=== PATIENT | female | born 1960 | race African-American/Black ===

== ENCOUNTER 2017-04-26 23:32 | Inpatient (IN) | payer MEDICAID, OTHER ==
[~2017-04-26] VITALS: Ht 157.5 cm; Wt 68.5 kg
[~2017-04-26 23:32] MED LIST: METF500T4 PO; OMEP40CA34 PO
[2017-04-26] MEDS ORDERED: SODIUM CHLORIDE 0.9% 1,000 ML IV ONE (23:58)
[2017-04-26] MEDS ORDERED: KETOROLAC 30MG/ML VIAL IV STA (23:58)
[2017-04-27 00:26] LABS: BASOPHILS % 0.6 % (0.0-2.0); EOSINOPHILS % 1.8 % (0.0-5.0); HEMATOCRIT. 39.7 % (36.0-48.0); HEMOGLOBIN. 13.5 g/dL (12.0-16.0); LYMPHOCYTES % 25.4 % (20.0-50.0); MEAN CORPUSCULAR HEMOGLOBIN 28.7 pg (28.0-32.0); MEAN CORPUSCULAR VOLUME 84.6 fL (81.0-99.0); MEAN PLATELET VOLUME 8.5 fl (7.4-10.4); MONOCYTES % 7.2 % (2.0-8.0); PLATELET 364 x1000/uL (130-400); RED CELL DISTRIBUTION WIDTH 15.1 % (11.6-14.6)
[2017-04-27 00:31] LABS: CHLORIDE 108 mEq/L (98-107)
[2017-04-27 00:41] LABS: CARBON DIOXIDE 24 mEq/L (21-32); ETHANOL BLOOD 228 mg/dL
[2017-04-27] MEDS ORDERED: PROPOFOL 200MG/20ML VIAL IV ONE (01:15)
[2017-04-27] MEDS ORDERED: SODIUM CHLORIDE 0.9% 1,000 ML IV ONE (02:15)
[2017-04-27] MEDS ORDERED: SODIUM CHLORIDE 0.9% 1,000 ML IV SCH (02:38)
[2017-04-27] MEDS ORDERED: KCL 20MEQ/100ML PREMIX 100 ML IV ONE (02:45)
[2017-04-27] MEDS ORDERED: MORPHINE SULFATE 4 MG/ML CPJ (NOT FOR IM USE) IV ONE (04:30)
[2017-04-27 08:00] VITALS: BP 108/58
[2017-04-27 08:21] VITALS: BP 100/58
[2017-04-27] MEDS ORDERED: ATEN50TA PO (08:47)
[2017-04-27] MEDS ORDERED: ALPR1TAB2 PO (08:47)
[2017-04-27] MEDS ORDERED: LOSA100T14 PO (08:47)
[2017-04-27] MEDS ORDERED: ASPI-1159 PO (08:47)
[2017-04-27] MEDS: MORPHINE SULFATE 4 MG/ML CPJ (NOT FOR IM USE) IV PRN ×4 (10:52→23:24)
[2017-04-27] MEDS ORDERED: DEXTROSE 50% WATER 50ML SYRINGE IV PRN (11:45)
[2017-04-27 12:00] VITALS: BP 106/67
[2017-04-27] MEDS: BLOOD SUGAR DIAGNOSTIC STRIP TEST SCH ×3 (12:20→21:00)
[2017-04-27] MEDS: INSULIN LISPRO 100 UNITS/ML SUBCUT SCH ×3 (13:03→21:00)
[2017-04-27 16:00] VITALS: BP 153/85
[2017-04-27 20:00] VITALS: BP 145/75
[2017-04-27 22:48] LABS: CLARITY URINE CLEAR (CLEAR); COLOR URINE YELLOW (YELLOW); GLUCOSE URINE NEGATIVE (NEGATIVE); KETONES URINE NEGATIVE (NEGATIVE); LEUKOCYTE ESTERASE URINE NEGATIVE (NEGATIVE); NITRITE URINE NEGATIVE (NEGATIVE); OCCULT BLOOD URINE NEGATIVE (NEGATIVE); PH URINE 6.5 (4.5-8.0); PROTEIN URINE NEGATIVE (NEGATIVE); SPECIFIC GRAVITY URINE 1.014 (1.005-1.030)
[2017-04-27 23:00] LABS: *AMPHETAMINES SCREEN URINE NEGATIVE (NEGATIVE); *BARBITURATES SCREEN URINE NEGATIVE (NEGATIVE); *BENZODIAZEPINES SCREEN URINE PRESUMTIVE POSITIVE (NEGATIVE); *COCAINE SCREEN URINE NEGATIVE (NEGATIVE); CANNABINOID URINE SCREEN NEGATIVE (NEGATIVE); METHADONE URINE SCREEN NEGATIVE (NEGATIVE); OPIATES URINE SCREEN PRESUMTIVE POSITIVE (NEGATIVE); PHENCYCLIDINE URINE SCREEN NEGATIVE (NEGATIVE)
[2017-04-28] VITALS: BP 134/86
[2017-04-28 04:00] VITALS: BP 139/83
[2017-04-28] MEDS: MORPHINE SULFATE 4 MG/ML CPJ (NOT FOR IM USE) IV PRN ×5 (04:08→21:01)
[2017-04-28] MEDS: BLOOD SUGAR DIAGNOSTIC STRIP TEST SCH ×4 (06:42→21:05)
[2017-04-28] MEDS: INSULIN LISPRO 100 UNITS/ML SUBCUT SCH ×4 (06:42→21:00)
[2017-04-28 07:37] VITALS: BP 128/67
[2017-04-28] MEDS: ENOXAPARIN 40MG/0.4ML SYR SUBCUT SCH (08:14)
[2017-04-28 12:09] VITALS: BP 136/74
[2017-04-28 15:51] VITALS: BP 132/74
[2017-04-28 19:14] LABS: BASOPHILS % 1.1 % (0.0-2.0); EOSINOPHILS % 1.5 % (0.0-5.0); HEMATOCRIT. 36.5 % (36.0-48.0); HEMOGLOBIN. 12.4 g/dL (12.0-16.0); LYMPHOCYTES % 30.2 % (20.0-50.0); MEAN CORPUSCULAR HEMOGLOBIN 28.1 pg (28.0-32.0); MEAN CORPUSCULAR VOLUME 82.7 fL (81.0-99.0); MEAN PLATELET VOLUME 8.7 fl (7.4-10.4); MONOCYTES % 7.7 % (2.0-8.0); NEUTROPHILS % 59.5 % (40.0-76.0); PLATELET 330 x1000/uL (130-400); RED BLOOD CELL COUNT 4.41 mill/uL (4.2-5.4); RED CELL DISTRIBUTION WIDTH 14.8 % (11.6-14.6)
[2017-04-28 19:20] LABS: PROTHROMBIN TIME 10.3 sec (9.4-11.6)
[2017-04-28 19:32] LABS: CARBON DIOXIDE 26 mEq/L (21-32); CHLORIDE 108 mEq/L (98-107)
[2017-04-28 20:00] VITALS: BP 138/81
[2017-04-29] VITALS: BP 147/77
[2017-04-29] MEDS: MORPHINE SULFATE 4 MG/ML CPJ (NOT FOR IM USE) IV PRN ×4 (01:03→15:37)
[2017-04-29 04:00] VITALS: BP 147/77
[2017-04-29] MEDS: BLOOD SUGAR DIAGNOSTIC STRIP TEST SCH ×2 (06:06→12:20)
[2017-04-29] MEDS: INSULIN LISPRO 100 UNITS/ML SUBCUT SCH ×2 (07:50→12:50)
[2017-04-29 08:00] VITALS: BP 154/81
[2017-04-29] MEDS: ENOXAPARIN 40MG/0.4ML SYR SUBCUT SCH (11:11)
[2017-04-29 12:00] VITALS: BP 145/81
[2017-04-29 16:00] VITALS: BP 149/86
== END 2017-04-29 18:10 | disposition short-term general hospital (02) | DRG 349 ==
LOC: ER 23:41 → 6EST 04-27 02:42 → ENRESERV 04-27 04:56
PROVIDERS: ADMIT Family Medicine; ATTEND Family Medicine
DX: T84.020A Dislocation of internal right hip prosthesis, initial encounter (principal); E11.65 Type 2 diabetes mellitus with hyperglycemia; I10 Essential (primary) hypertension; E03.9 Hypothyroidism, unspecified; E78.5 Hyperlipidemia, unspecified; E87.6 Hypokalemia; Y83.8 Other surgical procedures as the cause of abnormal reaction of the patient, or of later complication, without mention of misadventure at the time of the procedure; F10.129 Alcohol abuse with intoxication, unspecified; F17.200 Nicotine dependence, unspecified, uncomplicated; M16.12 Unilateral primary osteoarthritis, left hip; W01.0XXA Fall on same level from slipping, tripping and stumbling without subsequent striking against object, initial encounter; Y79.2 Prosthetic and other implants, materials and accessory orthopedic devices associated with adverse incidents; Z82.49 Family history of ischemic heart disease and other diseases of the circulatory system; Z79.82 Long term (current) use of aspirin; Z79.899 Other long term (current) drug therapy; Z88.8 Allergy status to other drugs, medicaments and biological substances; Y92.89 Other specified places as the place of occurrence of the external cause
CPT/HCPCS: 27250; 36415; 72170; 73502; 80053; 80061; 80305; 81003; 82962; 83520; 85025; 85610; 96361; 96365; 96366; 96375; 99152; 99285; G0482; J1650; J1815; J1885; J2270; J2704; J3480; J7030

== ENCOUNTER 2017-11-10 23:33 | Emergency (ER) | payer MEDICAID, OTHER ==
[~2017-11-10] VITALS: Ht 157.5 cm; Wt 79.0 kg
[~2017-11-10 23:33] MED LIST changes: +ALPR1TAB2 PO; +ASPI-1159 PO; +ATEN50TA PO; +LOSA100T14 PO
[2017-11-11] MEDS ORDERED: ACETAMINOPHEN WITH CODEINE 300/30MG TABLET PO ONE (00:15)
[2017-11-11] MEDS ORDERED: IBUPROFEN 600MG TABLET PO ONE (04:30)
[2017-11-11] MEDS ORDERED: TETANUS AND DIPHTHERIA TOX/PF 0.5ML SYR (ADULT) IM ONE (06:00)
[2017-11-11] MEDS ORDERED: TETANUS, DIPHTHERIA, PERTUSSIS VAC/PF 0.5ML (>7YR OLD) IM ONE (06:15)
[2017-11-11 06:33] VITALS: BP 128/88
== END 2017-11-11 08:15 | disposition home or self-care (01) ==
LOC: ER 23:33
DX: S00.83XA Contusion of other part of head, initial encounter (principal); S01.112A Laceration without foreign body of left eyelid and periocular area, initial encounter; S02.2XXA Fracture of nasal bones, initial encounter for closed fracture; Y04.2XXA Assault by strike against or bumped into by another person, initial encounter; Y07.499 Other family member, perpetrator of maltreatment and neglect; Y93.89 Activity, other specified; Y92.89 Other specified places as the place of occurrence of the external cause; I10 Essential (primary) hypertension; E11.9 Type 2 diabetes mellitus without complications; F17.210 Nicotine dependence, cigarettes, uncomplicated; E05.00 Thyrotoxicosis with diffuse goiter without thyrotoxic crisis or storm
CPT/HCPCS: 12011; 36415; 70450; 70486; 71111; 72125; 90471; 90715; 93005; 99285; G0482; 90714

== ENCOUNTER 2018-11-26 11:56 | Emergency (ER) | payer MEDICAID, OTHER ==
[~2018-11-26] VITALS: Ht 157.5 cm; Wt 70.0 kg
[~2018-11-26 11:56] MED LIST changes: +METF-414 PO; -METF500T4 PO
[2018-11-26] MEDS ORDERED: ACETAMINOPHEN 500MG TABLET PO ONE (12:45)
[2018-11-26 13:06] LABS: BASOPHILS % 1.1 % (0.0-2.0); EOSINOPHILS % 0.4 % (0.0-5.0); HEMATOCRIT. 36.9 % (36.0-48.0); HEMOGLOBIN. 12.6 g/dL (12.0-16.0); LYMPHOCYTES % 32.1 % (20.0-50.0); MEAN CORPUSCULAR HEMOGLOBIN 29.1 pg (28.0-32.0); MEAN CORPUSCULAR VOLUME 84.8 fL (81.0-99.0); MEAN PLATELET VOLUME 9.2 fl (7.4-10.4); MONOCYTES % 8.5 % (2.0-8.0); NEUTROPHILS % 57.9 % (40.0-76.0); PLATELET 248 x1000/uL (130-400); RED BLOOD CELL COUNT 4.35 mill/uL (4.2-5.4); RED CELL DISTRIBUTION WIDTH 14.3 % (11.6-14.6)
[2018-11-26 13:12] LABS: CHLORIDE 109 mEq/L (98-107)
[2018-11-26 13:27] LABS: INR 0.9; PROTHROMBIN TIME 9.4 sec (9.6-11.0)
[2018-11-26 13:35] LABS: CLARITY URINE CLEAR (CLEAR); COLOR URINE YELLOW (YELLOW); KETONES URINE NEGATIVE (NEGATIVE); LEUKOCYTE ESTERASE URINE NEGATIVE (NEGATIVE); NITRITE URINE NEGATIVE (NEGATIVE); OCCULT BLOOD URINE NEGATIVE (NEGATIVE); PROTEIN URINE NEGATIVE (NEGATIVE); SPECIFIC GRAVITY URINE 1.037 (1.005-1.030); UROBILINOGEN URINE 0.2 E.U./dL (0.2-1.0)
[2018-11-26] MEDS ORDERED: IBUPROFEN 600MG TABLET PO ONE (15:00)
[2018-11-26] MEDS ORDERED: IOHEXOL-300 100 ML BOTTLE ONE (16:42)
[2018-11-26 16:43] VITALS: BP 152/90
== END 2018-11-26 16:45 | disposition home or self-care (01) ==
LOC: ER 11:56
DX: R10.0 Acute abdomen (principal); E11.9 Type 2 diabetes mellitus without complications; E05.00 Thyrotoxicosis with diffuse goiter without thyrotoxic crisis or storm; I10 Essential (primary) hypertension; Z79.899 Other long term (current) drug therapy
CPT/HCPCS: 36415; 71045; 74177; 80053; 81003; 83690; 83880; 84484; 85025; 85610; 93005; 99284; Q9967